=== PATIENT | female | born 1995 | race Hispanic/Latino ===

== ENCOUNTER → 2017-11-09 | Day surgery (SDC) | payer OTHER ==
[~2017-11-09] VITALS: Ht 152.4 cm; Wt 68.0 kg
[~2017-11-09] MED LIST: BUPIVACAINE 0.25%/EPI 30ML SDV INJ ONE; CEFOXITIN SOD 1 GM VIAL ONE; DEXAMETHASONE SOD PHOS INJ 4 MG/ML VIAL ONE; DEXTROSE 5%/LACTATED RINGERS 1,000 ML IV SCH; FENTANYL CITRATE/PF 100MCG/2 ML INJ ONE; HYDROCODONE/APAP 7.5MG-325MG 1 EA TAB PO PRN; HYDROGEN PEROXIDE 120 ML BTL ONE; HYDROMORPHONE 1MG/1ML INJ IV PRN; HYDROMORPHONE 2MG/ML INJ IV PRN; KETOROLAC TROMETHAMINE 30 MG/ML VIAL ONE; MEPERIDINE HCL INJ 50 MG/ML INJ ONE; MIDAZOLAM HCL 2 MG/2 ML VIAL ONE; ONDANSETRON HCL INJ 2 MG/ML VIAL IV PRN; ONDANSETRON HCL INJ 2 MG/ML VIAL ONE; PROPOFOL IV EMULSION 10 MG/ML 20 ML VIAL ONE; ROCURONIUM BROMIDE 10 MG/ML 5ML VIAL ONE; SEVOFLURANE INHAL SOLN 250 ML PEN BTL ONE
[2017-11-09 12:51] LABS: BILIRUBIN,URINE NEGATIVE (NEGATIVE); CLARITY,URINE SL CLOUDY (CLEAR); COLOR,URINE YELLOW (YELLOW); KETONES,URINE NEGATIVE (NEGATIVE); LEUKOCYTE ESTERASE ,URINE NEGATIVE (NEGATIVE); NITRITE,URINE NEGATIVE (NEGATIVE); PREGNANCY TEST, URINE NEGATIVE (NEGATIVE); PROTEIN,URINE DIPSTICK NEGATIVE (NEGATIVE); URINE UROBILINOGEN 0.2 mg/dL (0.2 - 1)
[2017-11-09 12:56] LABS: BASOPHILS % 0.4 % (0.0-1.0); EOSINOPHILS # (AUTO) 0.3 (0.0-0.4); HEMATOCRIT 37.1 % (34.2-44.1); HEMOGLOBIN 12.2 g/dL (12.0-16.0); LYMPHOCYTES # (AUTO) 2.4 (1.0-3.2); LYMPHOCYTES % 30.3 % (18.0-39.1); MEAN CORPUSCULAR HEMOGLOBIN 28.6 pg (28-32); MEAN CORPUSCULAR HGB CONC 32.9 g/dL (31-35); MEAN CORPUSCULAR VOLUME 86.9 fL (81-99); MONOCYTES # (AUTO) 0.5 (0.2-0.8); MONOCYTES % 6.4 % (4.4-11.3); NEUTROPHILS # (AUTO) 4.5 (2.1-6.9); NEUTROPHILS % 58.4 % (38.7-80.0); PLATELET COUNT 264 x10e3/uL (140-360); RED BLOOD COUNT 4.27 x10e6/uL (3.6-5.1); RED CELL DISTRIBUTION WIDTH 13.2 % (11.7-14.4)
[2017-11-09 13:11] LABS: ALANINE AMINOTRANSFERASE 37 IU/L (0-55); ALBUMIN 3.7 g/dL (3.5-5.0); ALBUMIN/GLOBULIN RATIO 1.1 (0.8-2.0); ALKALINE PHOSPHATASE 59 IU/L (40-150); ANION GAP 10.7 mmol/L (8-16); BLOOD UREA NITROGEN 9 mg/dL (7-26); BUN/CREATININE RATIO 14 (6-25); CALCIUM 9.4 mg/dL (8.4-10.2); CARBON DIOXIDE 24 mmol/L (22-29); CHLORIDE 107 mmol/L (98-107); CREATININE, SERUM 0.64 mg/dL (0.57-1.11); EST GLOMERULAR FILTRATION RATE > 60 ML/MIN (60-); GLUCOSE 85 mg/dL (74-118); POTASSIUM 3.7 mmol/L (3.5-5.1); SODIUM 138 mmol/L (136-145)
[2017-11-09 13:12] LABS: AMYLASE 38 U/L (25-125); LIPASE 14 U/L (8-78)
[2017-11-09 13:31] LABS: BACTERIA,URINE RARE /HPF; EPITHELIAL CELLS,URINE MODERATE /LPF; MUCUS,URINE RARE (RARE)
[2017-11-09 13:35] VITALS: BP 110/67
--- NOTE | 2017-11-09 17:15 | Operative Report ---
DATE OF PROCEDURE: November 09, 2017 PREOPERATIVE DIAGNOSIS: Acute cholecystitis secondary to cholelithiasis, failed outpatient treatment. POSTOPERATIVE DIAGNOSIS: Acute cholecystitis secondary to cholelithiasis, failed outpatient treatment. PROCEDURE PERFORMED: Laparoscopic cholecystectomy. [employer] SERVICE MANAGER: MARY ANNE Cuello. ESTIMATED BLOOD LOSS: Minimal. DRAINS: None. COMPLICATIONS: None. INDICATIONS AND FINDINGS: The patient is a 22-year-old female who has been complaining of abdominal pain now for several weeks. She is 2 months . The patient has been seen at [place] emergency room, according to her history 3 times, and 3 times has been released. She was diagnosed with cholelithiasis. Her liver chemistries preoperative were normal. INTRAOPERATIVE FINDINGS: Adhesions of the omentum and the antrum to the gallbladder, but those were flimsy and not heavy. The gallbladder wall was mildly thickened but not gangrenous or acutely edematous. There were no grossly visible stones. However, 2 ultrasounds had revealed small stones. Her preoperative liver chemistries, amylase, lipase and all the other labs were normal. DESCRIPTION OF PROCEDURE: With the patient lying on the operative table in the supine position after administration of general anesthesia, she was prepped and draped for laparoscopic cholecystectomy. The procedure was begun by establishing a pneumoperitoneum in the umbilical site after a stab wound was made in that location and the saline drop test was performed. A pneumoperitoneum was insufflated to 15 mm of pressure and then the 10-11 trocar placed in that location. The patient was rotated to the left and with the head up, and we placed a 10 mm subxiphoid port. Finally we placed a right midclavicular 5 mm trocar as well as a right anterior axillary line trocar. The gallbladder was then retracted cephalad using grasping forceps. Adhesions of the omentum and stomach to the gallbladder were sharply lysed. Those were soft. The gallbladder contained some bile. It still had a bluish color; so, there was perhaps some mild thickening of the gallbladder wall. We went ahead and then began the dissection high on the neck of the gallbladder. The cystic duct was very, very small, at least 1, no more than 2 mm in diameter. We then clipped the cystic duct proximal to the common bile duct 3 times and distally 3 times proximal to the common bile duct and once proximal and transected it. Then we identified the cystic artery and transected between titanium clips also. Then we easily took the gallbladder down from the liver bed using electrocautery dissection. We removed it through the umbilical port. We inspected the operative field. There was no bile leak. No bleeding. No apparent bowel injury. We went ahead and then inspected the pelvis. Both ovaries appeared to be normal with the right ovary perhaps slightly larger than the left. The uterus appeared to be slightly enlarged. The patient is 2 months but had involuted. At this point, we then released the pneumoperitoneum under direct vision with a camera, and we inspected the trocar sites. There was no bleeding. The wounds were closed using 0 Vicryl for the umbilical fascia, 3-0 Vicryl for the subcutaneous tissue in that location as well as the subxiphoid port. The skin of all the ports was closed using karolina. Marcaine 0.25% with epinephrine was given as local block. The patient tolerated the procedure well, was taken to the recovery room in stable condition. Job#: [id number]
== END | disposition home or self-care (01) ==
LOC: ER 11:02 → OR 13:14
PROVIDERS: ATTEND Surgery
DX: K80.00 Calculus of gallbladder with acute cholecystitis without obstruction (principal); Z68.30 Body mass index [BMI] 30.0-30.9, adult; Z87.891 Personal history of nicotine dependence
CPT/HCPCS: 36415; 47562; 80053; 81001; 81025; 82150; 83690; 85025; 88304; 99284; C1766; J0694; J1100; J1885; J2175; J2250; J2405